=== PATIENT | female | born 1995 | race Caucasian/White ===

== ENCOUNTER 2023-04-05 21:43 | Emergency (ER) | payer BC, MEDICAID ==
[~2023-04-05] VITALS: Ht 168 cm; Wt 95.3 kg
[2023-04-05 21:51] VITALS: BP 125/87
[2023-04-05] MEDS ORDERED: FLUO40CA (21:57)
--- NOTE | 2023-04-05 22:10 | ED Lower Extremity ---
General Chief Complaint: Lower Extremity Stated Complaint: INJ RIGHT ANKLE Nursing Triage Note: REPORTS RIGHT LATERAL ANKLE PAIN/SWELLING AFTER ROLLING RIGHT ANKLE INWARD APPROX. 1999. Source: patient Exam Limitations: no limitations History of Present Illness Date Seen by Provider: Apr 05, 2023 Time Seen by Provider: 22:04 Initial Comments 27-year-old female presents to the ER with complaint of right ankle pain. She states that she was standing on her coffee table to hide a [employer] present and she fell. Reports that her ankle twisted inwards. She states that she felt a pop and the ankle swelled immediately. She reports this occurred a couple hours prior to arrival. She took Tylenol prior to coming to the ER. She reports that she cannot put any weight on her ankle. Allergies and Home Medications Allergies Coded Allergies: Penicillins (Verified Allergy, Unknown, 04/05/23) amoxicillin (Verified Allergy, Unknown, 04/05/23) Patient Home Medication List Home Medication List Reviewed: Yes Fluoxetine HCl (Fluoxetine HCl) 40 Mg Capsule, (Reported) Entered as Reported by: ROBBIE BRAGG on 04/05/232156 Last Action: New Order Review of Systems Constitutional: see HPI Past Aajfiqa-Rjdcaq-Ifezug Hx Patient Social History Tobacco Use?: Yes Substance use?: No Alcohol Use?: No Pt feels they are or have been: No Immunizations Up To Date First/Initial COVID19 Vaccinat: NA Past Medical History Surgery/Hospitalization HX: T/A, NASAL SX, , DEPRESSION/ANXIETY Last Menstrual Period: Apr 05, 2023 Physical Exam Vital Signs Vital Signs - First Documented 04/05/23 21:51 Temp 36.8 Pulse 86 Resp 16 B/P (MAP) 125/87 (100) Pulse Ox 99 O2 Delivery Room Air Capillary Refill : Less Than 3 Seconds Height, Weight, BMI Height: '" Weight: lbs. oz. kg; 33.00 BMI Method: General Appearance: WD/WN, no apparent distress Neck: supple, normal inspection Cardiovascular: regular rate, rhythm Respiratory: lungs clear, normal breath sounds, no respiratory distress, no accessory muscle use Ankles: right ankle limited range of motion, right ankle pain, right ankle soft tissue tenderness, right ankle swelling Feet: right foot other (Pulses intact, cap refill less than 2 seconds, sensation intact distally) Neurologic/Psychiatric: alert, normal mood/affect Skin: normal color, warm/dry Progress/Results/Core Measures Results/Orders My Orders Orders - ELEANOR AYON Zuhair PEREZ Ankle, Right, 3 Views (04/05/23 22:07) Ibuprofen Tablet (Ibuprofen Tablet) (04/05/23 22:15) Medications Given in ED Current Medications Medications Dose Ordered Sig/Alondra Route Start Time Stop Time Status Last Admin Dose Admin Ibuprofen 800 mg ONCE ONCE PO 04/05/23 22:15 04/05/23 22:16 DC 04/05/23 22:11 800 MG Vital Signs/I&O 04/05/23 21:51 Temp 36.8 Pulse 86 Resp 16 B/P (MAP) 125/87 (100) Pulse Ox 99 O2 Delivery Room Air 2 Blood Pressure Mean: 100 Progress Progress Note : Progress Note Patient seen and evaluated, resting comfortably in recliner, no acute distress. Based on exam and symptoms, x-ray of right ankle ordered. Ibuprofen ordered for pain. 2230 x-ray reviewed by me. No acute fracture or dislocation noted. Results discussed with patient. Will discharge patient with Dima bandage and prescription for crutches. Patient is stable for discharge. Discharge instructions and return precautions provided. Departure Impression Primary Impression: Sprain and strain of ankle Disposition: HOME, SELF-CARE Condition: Stable Departure-Patient Inst. Decision time for Depature: 22:32 Referrals: ISABELLA GOODEN APRN (PCP) Primary Care Physician Patient Instructions: Ankle Sprain (DC) Add. Discharge Instructions: RICE for your ankle: Rest, ice, compression, elevation. Rest your ankle. Use the crutches to keep weight off of your ankle. Ice it for 20 at that time several times a day for the next couple days. Wear the Dima bandage for compression. Elevate your ankle above the level of your heart as frequently as possible. You may take 1000 mg of Tylenol every 8 hours for pain. You may also take 800 mg of ibuprofen every 8 hours with food as needed for pain. Take the paper prescription for the crutches to the pharmacy. You may want to call them ahead of time to make sure that they have crutches. You may call back tomorrow after 9 AM to get the results of your x-ray. Follow-up with your primary care provider. Return for any new, concerning, or worsening symptoms. All discharge instructions reviewed with patient and/or family. Voiced understanding. ELEANOR AYON APRN Apr 05, 2023 22:10
[2023-04-05] MEDS ORDERED: IBUPROFEN 800 MG TABLET PO ONE (22:15)
--- NOTE | 2023-04-06 07:55 | Diagnostic Imaging Report ---
INDICATION: Pain FINDINGS: 3 views of the right ankle performed. There is swelling about the ankle anterolaterally but no fracture, dislocation or disruption of the mortise. IMPRESSION: Swelling but no visible bony injury. Dictated by: Dictated on workstation # [id number]
== END 2023-04-05 22:42 | disposition home or self-care (01) ==
LOC: ER 21:47
DX: S93.401A Sprain of unspecified ligament of right ankle, initial encounter (principal); S96.911A Strain of unspecified muscle and tendon at ankle and foot level, right foot, initial encounter; X50.1XXA Overexertion from prolonged static or awkward postures, initial encounter; W08.XXXA Fall from other furniture, initial encounter
CPT/HCPCS: 73610